=== PATIENT | male | born 1955 | race Caucasian/White ===

== ENCOUNTER → 2017-04-01 | Outpatient (CLI) | payer OTHER ==
[~2017-04-01] MED LIST: ANAPROX DS550 MG PO; APAP/CODEINE ELI5 M1 OR; ASPIR 8181 MG PO; CARAFATE 1 GM TA1 G1 PO; CARDIZEM CD240 MG PO; CIPROFLOXACIN500 M1 PO; CITRATE OF MAG300 ML; COQ-10100 MG PO; HYDROCODON-ACE1 EAC7 PO; LEVAQUIN 500 M500 M2 PO; LIDOCAINE VISC100 M1 MM; LIPITOR10 MG PO; LISINOPRIL-HCT1 EAC1 PO; LISINOPRIL20 MG PO; LOVENOX SQ; MAGOX 400400 MG PO; MIRALAX17 GM PO; NABUMETONE 750750 M1 PO; NIFEDIPINE ER90 M1 PO; NORVASC5 MG PO; NUCYNTA100 MG PO; PAXIL10 MG; PEPCID20 MG PO; PERCOCET 10-321 EACH PO; PERCOCET 5-3251 EACH PO; PERCOCET PO; PROTONIX40 M1 PO; PROZAC 20 MG20 M1 PO; REGLAN 10 MG TA10 MG PO; TIZANIDINE HCL4 MG PO; TOPROL XL50 MG PO; TRAMADOL HCL50 MG PO; TRAMADOL-ACETA1 EACH PO; UREA CREAM 40%1 TUB1 TOP; VERAPAMIL ER120 M1 PO; VERAPAMIL ER180 MG PO; VICODIN PO; VITAMIN D2000 UNIT PO; XANAX 0.5 MG0.5 MG; XANAX 0.5 MG0.5 MG PO
== END ==
LOC: CAT 08:48
DX: K76.89 Other specified diseases of liver (principal); K86.2 Cyst of pancreas

== ENCOUNTER → 2018-02-10 | Outpatient (CLI) | payer OTHER | LOC: CAT 10:52 | PROVIDERS: Surgery | DX: K57.10 Diverticulosis of small intestine without perforation or abscess without bleeding (principal); N28.1 Cyst of kidney, acquired; M51.36 Other intervertebral disc degeneration, lumbar region; N40.0 Benign prostatic hyperplasia without lower urinary tract symptoms; R10.32 Left lower quadrant pain ==

== ENCOUNTER → 2018-11-19 | Outpatient (CLI) | payer BC | LOC: MRI 11:57 | DX: M47.816 Spondylosis without myelopathy or radiculopathy, lumbar region (principal); M25.78 Osteophyte, vertebrae; M51.25 Other intervertebral disc displacement, thoracolumbar region; M51.26 Other intervertebral disc displacement, lumbar region; M48.062 Spinal stenosis, lumbar region with neurogenic claudication; Z88.8 Allergy status to other drugs, medicaments and biological substances; Z88.2 Allergy status to sulfonamides; Z88.1 Allergy status to other antibiotic agents ==

== ENCOUNTER → 2019-06-03 | Outpatient (CLI) | payer BC ==
[2019-06-03 11:05] LABS: HEMATOCRIT 45.9 % (42.0-52.0); HEMOGLOBIN 15.4 gm/dL (14.0-18.0); MCH 33.1 pg (26.0-34.0); MCHC 33.5 g/dL (28.0-37.0); MCV 98.6 fL (80.0-100.0); RBC 4.66 mil/uL (4.50-6.00); WBC 8.9 thou/uL (4.0-11.0)
[2019-06-03 11:23] LABS: CALCIUM 9.7 mg/dL (8.5-10.1); CREATININE 1.1 mg/dL (0.7-1.3); POTASSIUM 4.4 mmol/L (3.5-5.1)
== END ==
LOC: LABMALL 09:13 → CAT 09:13
PROVIDERS: Family Medicine
DX: K57.32 Diverticulitis of large intestine without perforation or abscess without bleeding (principal); N28.1 Cyst of kidney, acquired; K44.9 Diaphragmatic hernia without obstruction or gangrene; K56.41 Fecal impaction; K76.0 Fatty (change of) liver, not elsewhere classified; Z88.8 Allergy status to other drugs, medicaments and biological substances; Z90.49 Acquired absence of other specified parts of digestive tract; Z98.890 Other specified postprocedural states

== ENCOUNTER → 2019-10-12 | Outpatient (CLI) | payer BC | LOC: LAB 13:38 | PROVIDERS: ATTEND Family Medicine | DX: Z20.828 Contact with and (suspected) exposure to other viral communicable diseases (principal) ==